=== PATIENT | female | born 1945 | race Caucasian/White ===

== ENCOUNTER 2017-09-30 17:14 | Emergency (ER) | payer MEDICARE, BC ==
--- NOTE | 2017-09-30 18:50 | EDM.PDOC ---
ED HPI GENERAL MEDICAL PROBLEM - General Chief Complaint: Cardiovascular Problem Stated Complaint: IRREGULAR HEART RATE Time Seen by Provider: 09/30/17 18:25 Source of Information: Reports: Patient, Family History Limitations: Reports: No Limitations - History of Present Illness INITIAL COMMENTS - FREE TEXT/NARRATIVE: 71-year-old female woke up yesterday morning with vertigo, since then she feels intermittent palpitations, generalized anxiety and ill feeling. Tonight she was taking her pulse oximeter because she has COPD and her pulse was very erratic from 90 to 130 and she felt palpitations. She had no chest pain, she also felt her face was "flushed" and she was worried about her blood pressure. She decided to come in and get checked. She was placed on a monitor and was in sinus rhythm with fairly frequent PACs. She denies shortness of breath, nausea or vomiting, peripheral edema, rashes or joint pains. No fevers or chills. Onset: Gradual (Over the past 48 hours) Severity: Mild Associated Symptoms: Reports: Other (Dizziness, vertigo). Denies: Chest Pain, Cough, Nausea/Vomiting, Weakness - Related Data Allergies Allergy/AdvReac Type Severity Reaction Status Date / Time acetaminophen [From Vicodin] AdvReac Nausea and Verified 09/30/17 17:46 Vomiting codeine AdvReac Nausea and Verified 09/30/17 17:46 Vomiting hydrocodone [From Vicodin] AdvReac Nausea and Verified 09/30/17 17:46 Vomiting Home Meds: Home Meds Albuterol Sulfate [Proair Hfa] 1 puff INH Q4H PRN 09/30/17 [History] Umeclidinium Brm/Vilanterol Tr [Anoro Ellipta 62.5-25 Mcg INH] 1 puff INH DAILY 09/30/17 [History] Past Medical History Respiratory History: Reports: COPD, Sleep Apnea [employer] History: Reports: - Past Surgical History GI Surgical History: Reports: Appendectomy Social & Family History - Tobacco Use Smoking Status *Q: Current Every Day Smoker Years of Tobacco use: 50 Packs/Tins Daily: 0.5 - Caffeine Use Caffeine Use: Reports: Soda - Recreational Drug Use Recreational Drug Use: No ED ROS GENERAL - Review of Systems Review Of Systems: See Below Constitutional: Denies: Fever, Chills HEENT: Reports: Other (Some sinus congestion) Respiratory: Reports: Shortness of Breath (Chronic shortness of breath, stable COPD no new symptoms) Cardiovascular: Reports: Palpitations. Denies: Chest Pain GI/Abdominal: Denies: Abdominal Pain, Nausea, Vomiting Skin: Reports: No Symptoms Neurological: Reports: No Symptoms, Dizziness. Denies: Headache ED EXAM, GENERAL - Physical Exam Exam: See Below Exam Limited By: No Limitations General Appearance: Alert, No Apparent Distress Eye Exam: Bilateral Eye: Normal Inspection Respiratory/Chest: No Respiratory Distress, Lungs Clear, Decreased Breath Sounds (Diffuse decreased breath sounds) Cardiovascular: Regular Rate, Rhythm, No Murmur, Extra Beats GI/Abdominal: Soft, Non-Tender Extremities: Normal Inspection. No: Pedal Edema Neurological: Alert, Oriented Psychiatric: Anxious Skin Exam: Warm, Dry Course - Vital Signs Last Recorded V/S: Last Vital Signs Temp 98.4 F 09/30/17 17:43 Pulse 90 09/30/17 17:53 Resp 20 09/30/17 17:53 BP 173/83 H 09/30/17 17:53 Pulse Ox 99 09/30/17 17:53 - Re-Assessments/Exams Free Text/Narrative Re-Assessment/Exam: 09/30/17 18:49 Patient was kept on cardiac monitoring while we obtained a CBC, BMP and troponin. I tried to reassure her she was not in a serious arrhythmia and she started to calm down. 09/30/17 18:55 When labs came in to draw the patient, the family decided they did not want any workup. She will return if symptoms worsen, a recheck blood pressure showed it was still coming down at 151/92. She remained in a sinus rhythm with occasional PACs. Departure - Departure Time of Disposition: 19:05 Disposition: Home, Self-Care 01 Condition: Good Clinical Impression: Palpitations, PAC (premature atrial contraction) Instructions: Premature Atrial Contraction Referrals: PCP,None [Primary Care Provider] - Forms: ED Department Discharge Care Plan Goals: Continue your regular medications and activity as tolerated. Return if you develop worsening symptoms or other concerns.
== END 2017-09-30 19:04 | disposition home or self-care (01) ==
LOC: JP.ED 17:14
DX: I49.1 Atrial premature depolarization (principal); R00.2 Palpitations; J44.9 Chronic obstructive pulmonary disease, unspecified; F17.210 Nicotine dependence, cigarettes, uncomplicated; Z88.5 Allergy status to narcotic agent; Z88.8 Allergy status to other drugs, medicaments and biological substances
CPT/HCPCS: 99285